=== PATIENT | female | born 1940 | race Caucasian/White ===

== ENCOUNTER 2017-03-12 05:51 | Inpatient (IN) | payer OTHER ==
[2017-03-04 13:01] VITALS: BMI 23.0
--- NOTE | 2017-03-04 13:36 | PAT Medication Instructions ---
Service Date Mar 04, 2017. Current Home Medication List Anastrozole (Arimidex), 1 MG PO QAM Atorvastatin (Lipitor), 10 MG PO QAM Cholecalciferol (Vitamin D3), 1 TAB PO QAM Fish Oil ([place]-3), 1 CAP PO QAM Ibuprofen (Advil), 200-600 MG PO Q6 PRN for Pain Medication Instructions For Your Scheduled Surgery - Hold the following medications starting tomorrow, 03/05/17: Fish Oil ([place]-3), 1 CAP PO QAM - Hold the following medications the morning of surgery: Cholecalciferol (Vitamin D3), 1 TAB PO QAM Ibuprofen (Advil), 200-600 MG PO Q6 PRN for Pain (unless otherwise indicated by surgeon) - Take the following medications the morning of surgery with a sip of water: Atorvastatin (Lipitor), 10 MG PO QAM Anastrozole (Arimidex), 1 MG PO QAM If you have any questions please call us at [phone] or [phone] or [phone]
--- NOTE | 2017-03-04 14:24 | DIAGNOSTIC IMAGING REPORT ---
CHEST 2 VIEWS ROUTINE CLINICAL HISTORY: 76 years-old Female presenting with preoperative assessment. TECHNIQUE: PA and lateral views of the chest were obtained. COMPARISON: None. FINDINGS: Surgical clips project over the left axilla and over the left lung base. Atherosclerosis of the aortic arch. Tortuosity of the descending thoracic aorta. Cardiac silhouette normal. Lungs and pleural spaces clear. Osseous structures normal. Upper abdomen normal. IMPRESSION: 1. No acute cardiopulmonary disease. Electronically signed by: Andrae Hoyos M.D. 03/04/2017 2:22 PM Dictated Date/Time: 03/04/2017 2:21 PM
[2017-03-04 14:46] LABS: PROTHROMBIN TIME (PATIENT) 10.9 SECONDS (9.0-12.0)
[2017-03-04 14:47] LABS: BASO % 0.1 %; BASO ABS # 0.01 K/uL (0-0.2); COMPLETE YES; EOS % 1.9 %; HEMATOCRIT 49.7 % (37-47); LYMPH % 21.5 %; LYMPH ABS # 1.58 K/uL (1.2-3.4); MEAN CORPUSCULAR HEMOGLOBIN 29.7 pg (25-34); MEAN PLATELET VOLUME 10.1 fL (7.4-10.4); MONO % 8.3 %; NEUT % 68.2 %; PLATELET COUNT 200 K/uL (130-400); RED BLOOD COUNT 5.52 M/uL (4.2-5.4); WHITE BLOOD COUNT 7.35 K/uL (4.8-10.8)
[2017-03-04 14:49] LABS: URINE APPEARANCE CLEAR (CLEAR); URINE BILIRUBIN NEG (NEG); URINE COLOR YELLOW; URINE NITRITE POS (NEG); URINE PH 5.5 (4.5-7.5); URINE SPECIFIC GRAVITY 1.019 (1.000-1.030); UROBILINOGEN NEG (NEG)
[2017-03-04 14:50] LABS: MANUAL MICROSCOPIC REQUIRED? NO; REVIEW REQ? NO
[2017-03-04 14:57] LABS: BUN/CREATININE RATIO 16.1 (10-20); CALCIUM 9.6 mg/dl (8.5-10.1); CREATININE 0.8 mg/dl (0.60-1.20); POTASSIUM 3.7 mmol/L (3.5-5.1)
[2017-03-05 07:01] LABS: ESTIMATED AVERAGE GLUCOSE 100 mg/dl; HA1C FLAG Normal (Normal)
--- NOTE | 2017-03-11 12:58 | HISTORY & PHYSICAL EXAMINATION ---
DATE OF ADMISSION: 03/12/2017 CHIEF COMPLAINT: Right hip pain. HISTORY OF PRESENT ILLNESS: The patient is a 76-year-old female with known osteoarthritis about her right hip. She recently had an intraarticular corticosteroid injection with minimal relief. She continues to have pain and disability with activities of daily living and now desires to proceed with right total hip arthroplasty. PAST MEDICAL HISTORY: Hypercholesterolemia, acid reflux, and breast cancer. PAST SURGICAL HISTORY: Breast lumpectomy, tubal ligation. MEDICATIONS: Lipitor daily, Arimidex 1 mg daily, vitamin D 3000 units daily, fish oil 1000 mg daily, and ibuprofen p.r.n. ALLERGIES: No known drug allergies. SOCIAL HISTORY AND REVIEW OF SYSTEMS: Noncontributory. PHYSICAL EXAMINATION: GENERAL: Well-nourished, well-developed elderly female who appears her stated age. HEENT: Normocephalic, atraumatic, extraocular movements intact, oropharynx pink and moist. NECK: Supple without adenopathy. LUNGS: Clear to auscultation bilaterally. HEART: Regular rate and rhythm. ABDOMEN: Soft, nontender, nondistended. EXTREMITIES: The upper extremities are within normal limits. The right hip demonstrates limited range of motion. There is limitation of active and passive, internal/external rotation. She has pain at end range. X-RAYS: X-rays were reviewed. She has severe osteoarthritis about the right hip with complete loss of the joint space. There are large osteophytes about the femoral head and acetabulum. ASSESSMENT: Right hip degenerative joint disease. PLAN: Risks versus benefits were discussed. Consent was obtained. The patient's primary care physician is Dr Phillip Zuñiga. We will proceed with right total hip arthroplasty upon preop workup and medical clearance. [facility] [place] DIVISIONYuliya
[~2017-03-12] VITALS: Ht 167.6 cm; Wt 65.6 kg
[2017-03-12] VITALS (9 sets, daily range): BP systolic 117–156; BP diastolic 56–105; PULSE 68–88; TEMP 36.3–36.7; O2SAT 93–98; Ht 167.6 cm; Wt 65.6 kg
[~2017-03-12 05:51] MED LIST: ANAS1TAB19 PO; ATOR10TA88 PO; IBUP-1050 PO; OMEG10007 PO; VTMD1000 PO
[2017-03-12] MEDS ORDERED: GABAPENTIN 300 MG CAP PO SCH (06:00)
[2017-03-12] MEDS ORDERED: DEXAMETHASONE 4 MG TAB PO SCH (06:00)
[2017-03-12] MEDS ORDERED: LACTATED RINGER'S 1000ML 1,000 ML IV SCH (06:00)
[2017-03-12] MEDS ORDERED: ROPIVACAINE 5MG/ML 30 ML 150 MG, BUPIVACAINE/EPINEPHR 0.5% MPF 30 ML, KETOROLAC TROMETH... INFIL SCH ×7 (06:00)
[2017-03-12] MEDS ORDERED: FAMOTIDINE 20 MG TAB PO SCH (06:00)
[2017-03-12] MEDS ORDERED: LACTATED RINGER'S 1000ML 500 ML IV ONE (06:00)
[2017-03-12] MEDS ORDERED: LACTATED RINGER'S 1000ML IV SCH (06:00)
[2017-03-12] MEDS ORDERED: TRANEXAMIC ACID INJ 1,000 MG in SODIUM CHLORIDE 0.9% 100ML 100 ML IV SCH (06:00)
[2017-03-12] MEDS ORDERED: ACETAMINOPHEN 500 MG TAB PO SCH (06:00)
[2017-03-12] MEDS ORDERED: METOCLOPRAMIDE HCL 10 MG TAB PO SCH (06:00)
[2017-03-12] MEDS ORDERED: CEFAZOLIN 1000MG/55 ML D5W 55 ML IV SCH (06:00)
[2017-03-12] MEDS ORDERED: CeleBREX 200 MG CAP PO SCH (06:00)
[2017-03-12] MEDS ORDERED: OXYCODONE HCL 10 MG TABCR (OXYCONTIN) PO SCH (06:00)
[2017-03-12] MEDS: TRANEXAMIC ACID INJ 1,000 MG in SODIUM CHLORIDE 0.9% 100ML 100 ML IV SCH ×2 (06:30→07:17)
[2017-03-12] MEDS ORDERED: BUPIVACAINE 0.5 % 5 MG/1 ML PF 10ML VIAL ONE (06:41)
--- NOTE | 2017-03-12 06:58 | History & Physical Bridge Note ---
H&P Re-Evaluation Bridge Note: I have examined the patient, reviewed the History & Physical and in the interval since the performance of the History & Physical I have noted the following changes of clinical significance: No changes noted
[2017-03-12] MEDS ORDERED: MIDAZOLAM HCL 1 MG/ML 2ML VIAL ONE (07:04)
[2017-03-12] MEDS ORDERED: EpHEDrine SULFATE INJ 50 MG/ML AMP IV PRN (07:15)
[2017-03-12] MEDS ORDERED: FENTANYL CITRATE INJ 50 MCG/1 ML 2 ML VIAL IV PRN (07:15)
[2017-03-12] MEDS ORDERED: ONDANSETRON INJ 2 MG/ML 2 ML VIAL IV PRN ×2 (07:15→09:30)
[2017-03-12] MEDS ORDERED: ATROPINE SULFATE 0.1 MG/ML 5ML SYR IV PRN (07:15)
[2017-03-12] MEDS ORDERED: ORTHO JOINT ANESTHETIC ONE (07:16)
[2017-03-12] MEDS ORDERED: POVIDONE-IODINE OP SOLN 30 ML BTL ONE (07:16)
[2017-03-12] MEDS ORDERED: BACITRACIN 50000 UNIT VIAL ONE (07:16)
[2017-03-12] MEDS ORDERED: PROPOFOL IV EMULSION 10 MG/ML 20 ML VIAL IV ONE (08:30)
--- NOTE | 2017-03-12 09:00 | [facility] Post Operative Brief Note ---
Immediate Operative Summary Operative Date Mar 12, 2017. Pre-Operative Diagnosis OA right hip Post-Operative Diagnosis same Procedure(s) Performed R supa Surgeon [employer] Manufacturing Technician Surgeon(s) Kaya Estimated Blood Loss 100cc Findings severe OA Specimens head Complication(s) None Disposition Recovery Room / PACU
[2017-03-12] MEDS ORDERED: PHENYLEPHRINE 100MCG/ML 5ML SYR ONE (09:12)
[2017-03-12] MEDS ORDERED: EpHEDrine SULFATE 50MG/5ML SYR ONE (09:12)
[2017-03-12] MEDS ORDERED: MoRPHine SULFATE 4 MG/ML 1 ML CARP\\VIAL IV PRN (09:30)
[2017-03-12] MEDS ORDERED: MAGNESIUM HYDROXIDE SUSP 30 ML UDC PO PRN (09:30)
[2017-03-12] MEDS ORDERED: ALUMINUM/MAGNESIUM/SIMETH (MAALOX MAX) 30 ML UDC PO PRN (09:30)
[2017-03-12] MEDS ORDERED: BISACODYL 10 MG SUPP PR PRN (09:30)
[2017-03-12] MEDS ORDERED: MoRPHine SULFATE 2 MG/ML CARP IV PRN (09:30)
[2017-03-12] MEDS ORDERED: TRAMADOL HCL 50 MG TAB PO PRN (09:30)
--- NOTE | 2017-03-12 09:32 | OPERATIVE REPORT ---
DATE OF OPERATION: 03/12/2017 PREOPERATIVE DIAGNOSIS: Osteoarthritis, right hip. POSTOPERATIVE DIAGNOSIS: Osteoarthritis, right hip. PROCEDURE: Right connective total hip arthroplasty. SURGEON: Dr. Sorensen. SPINNING BATH PERSON: HEMANT Lou ANESTHESIA: Spinal. COMPLICATIONS: None. IMPLANTS USED: Acetabular reamer used 54, acetabular shell 54, femoral stem 3, femoral head +2.5 x 36 ceramic. DESCRIPTION OF PROCEDURE: Following induction of adequate spinal anesthesia, the patient was placed in left lateral decubitus position and right Jaime-Langenbeck incision was made. Subcutaneous tissue was sharply dissected. Electrocautery used for hemostasis. The fascia was incised throughout the length of the wound and a doe scissor placed beneath the short external rotators. The pyriformis was tagged with #1 Vicryl. The short external rotators were divided from the posterior aspect of the femur using electrocautery. These were swept posteriorly. A T-capsulotomy incision was made and the hip was dislocated using a combination of flexion, adduction, and internal rotation. Exposure of the femoral neck with old-style Hohmann and a blunt Hohmann was carried out and a femoral rasp was utilized as a guide for making the appropriate level femoral neck cut. This bone fragment was removed and reserved on the back table. Next, attention was turned to the acetabulum where bone hook was used to retract the femur while the offset retractors were placed anterior and posteriorly. A double-angled Hohmann was placed in superior and anterior position exposing the acetabulum nicely. Acetabular labrum as well as posterior capsule elements were removed using a long knife and a long pickup. Fovea centralis was cleared of all soft tissue. Sequential reamings were carried up to a 54 and decision was made to proceed with impaction of a 54 trabecular metal cup. This was impacted and held using a single 35 mm bone screw. The acetabular liner was placed with 15 of elevated posterior wall in the superior and posterior position. Next, attention was turned to the femoral portion of the case where a Bovie and pickup was used to further clear short external rotators from their insertion on the femur. Box osteotome was used to gain access to the femoral canal and the T-handled rasp and a rattail rasp were used to further open and lateral the canal. Sequentially raspings were carried up to a 3, which gave good fit and fill of the proximal femur. A trial reduction was carried out and ____ offset femoral neck component was chosen as the size to be used. A +2.5 x 36 mm femoral head was impacted into position, +0 head was utilized. The trial reduction was stable in all degrees of rotation with no [id number] impingement. The hip was dislocated. The trial components were removed and the final femoral stem, neck, and femoral head combination were assembled on the back table and impacted into position. Hip was relocated. Range of motion checked once again successful and the wound was irrigated. The pyriformis repaired to the greater trochanter using #1 Vicryl [id number] suture. A Hemovac drain was placed and the fascia was closed using #1 Vicryl, subcutaneous tissue was closed using 0 Dexon, and skin was closed with yen. Sterile dressing of Adaptic, 4 x 4's, ABDs, and foam tape was applied. The patient tolerated the procedure well. Due to the complex nature of the procedure, the entire surgery was performed with the operational assistance of HEMANT Lou. The legal executive assistant, under direct supervision, was involved in the actual performance of all aspects of the surgical procedure including hemostasis, tissue retraction and incision, instrument management, patient positioning, and wound closure. DISPOSITION: Recovery room stable. I attest to the content of the Intraoperative Record and any orders documented therein. Any exception s are noted below.
--- NOTE | 2017-03-12 09:53 | DIAGNOSTIC IMAGING REPORT ---
RIGHT PELVIS/UNILATERAL HIP 1 VIEW CLINICAL HISTORY: Postoperative evaluation. COMPARISON: None FINDINGS: Alignment of the total right hip arthroplasty is anatomic. There is no periprosthetic fracture or unexpected radiopaque foreign body. Surgical drains are in place. There is an acetabular screw. IMPRESSION: Expected findings following total right hip arthroplasty. Electronically signed by: Tomasz Woo M.D. 03/12/2017 9:52 AM Dictated Date/Time: 03/12/2017 9:51 AM
[2017-03-12] MEDS: D5W AND 1/2NSS + 20MEQ KCL 1,000 ML IV SCH ×2 (10:55→20:41)
--- NOTE | 2017-03-12 11:23 | Anesthesiology Progress Note ---
Anesthesia Post Op Note Date & Time Mar 12, 2017 at 11:23 Vital Signs Pain Intensity: 0.0 Vital Signs Past 12 Hours Date Time Temp Pulse Resp B/P (MAP) Pulse Ox O2 Delivery O2 Flow Rate FiO2 03/12/17 10:40 36.4 86 17 145/82 (103) 94 Nasal Cannula 2.0 03/12/17 10:10 98 Nasal Cannula 2.0 03/12/17 10:10 36.5 74 18 149/77 (101) 98 Nasal Cannula 2.0 03/12/17 10:10 Nasal Cannula 03/12/17 09:50 36.5 82 16 124/77 97 Nasal Cannula 2 03/12/17 09:40 75 16 129/64 97 Nasal Cannula 2 03/12/17 09:30 36.1 81 16 128/77 100 Nasal Cannula 2 03/12/17 09:24 36.1 74 16 132/75 100 Oxymask 10 03/12/17 06:11 36.6 88 18 153/105 96 Room Air Notes Mental Status: alert / awake / arousable, participated in evaluation Pt Amnestic to Procedure: Yes Nausea / Vomiting: adequately controlled Pain: adequately controlled Airway Patency, RR, SpO2: stable & adequate BP & HR: stable & adequate Hydration State: stable & adequate Neuraxial Anesthesia: was administered, sensory block is resolving Anesthetic Complications: no major complications apparent
[2017-03-12] MEDS: FERROUS GLUCONATE 324 MG TAB PO SCH ×2 (12:42→17:41)
[2017-03-12] MEDS: CEFAZOLIN IV 1,000 MG in DEXTROSE 5% 50ML 50 ML IV SCH (16:30)
[2017-03-12] MEDS: ACETAMINOPHEN 500 MG TAB PO SCH (16:30)
[2017-03-12] MEDS: ASPIRIN 81 MG ECTAB PO SCH (20:42)
[2017-03-12] MEDS: DOCUSATE SODIUM 100 MG CAP PO SCH (20:42)
[2017-03-12] MEDS: OXYCODONE HCL IR 5 MG TAB (IMMEDIATE RELEASE) PO PRN (22:15)
[2017-03-13] MEDS: ACETAMINOPHEN 500 MG TAB PO SCH ×4 (00:05→23:27)
[2017-03-13] MEDS: CEFAZOLIN IV 1,000 MG in DEXTROSE 5% 50ML 50 ML IV SCH (00:05)
[2017-03-13 04:04] VITALS: BP 114/63; PULSE 70; TEMP 36.7; O2SAT 93
[2017-03-13] MEDS: D5W AND 1/2NSS + 20MEQ KCL 1,000 ML IV SCH (05:17)
[2017-03-13 05:53] LABS: BASO % 0.1 %; BASO ABS # 0.01 K/uL (0-0.2); COMPLETE YES; EOS % 0.1 %; HEMATOCRIT 39.4 % (37-47); IG% 0.3 %; LYMPH % 7.9 %; LYMPH ABS # 1.16 K/uL (1.2-3.4); MEAN CELL VOLUME 89.7 fL (80-100); MEAN CORPUSCULAR HEMOGLOBIN 30.1 pg (25-34); MEAN CORPUSCULAR HGB CONC 33.5 g/dl (32-36); MEAN PLATELET VOLUME 9.8 fL (7.4-10.4); MONO % 8.2 %; NEUT % 83.4 %; PLATELET COUNT 248 K/uL (130-400); RED BLOOD COUNT 4.39 M/uL (4.2-5.4); WHITE BLOOD COUNT 14.75 K/uL (4.8-10.8)
[2017-03-13 06:28] LABS: CALCIUM 8.9 mg/dl (8.5-10.1); CREATININE 0.94 mg/dl (0.60-1.20)
[2017-03-13 06:58] VITALS: BP 118/65; PULSE 57; TEMP 36.5; O2SAT 93
--- NOTE | 2017-03-13 07:26 | Orthopedic Progress Note ---
Orthopedic Progress Note Date of Service Mar 13, 2017. Subjective Post OP Day: 1 Reports: feeling well Objective N/V intact, dressing C/D/I (Hemovac in place), toes mobile Date Time Temp Pulse Resp B/P (MAP) Pulse Ox O2 Delivery O2 Flow Rate FiO2 03/13/17 06:58 36.5 57 16 118/65 (82) 93 Room Air 03/13/17 04:04 36.7 70 16 114/63 (80) 93 Room Air 03/13/17 00:05 Room Air 03/12/17 22:58 36.6 68 16 117/56 (76) 93 Room Air 03/12/17 20:10 36.7 68 18 137/77 (97) 94 Room Air 03/12/17 15:31 Room Air 03/12/17 15:09 36.5 79 18 134/77 (96) 95 Room Air 03/12/17 13:12 36.4 80 19 137/81 (99) 97 Room Air 2.0 03/12/17 12:08 36.4 81 19 151/86 (107) 98 Nasal Cannula 2.0 03/12/17 11:10 36.3 80 16 156/89 (111) 94 Nasal Cannula 2.0 03/12/17 10:40 36.4 86 17 145/82 (103) 94 Nasal Cannula 2.0 03/12/17 10:10 98 Nasal Cannula 2.0 03/12/17 10:10 36.5 74 18 149/77 (101) 98 Nasal Cannula 2.0 03/12/17 10:10 Nasal Cannula 03/12/17 09:50 36.5 82 16 124/77 97 Nasal Cannula 2 03/12/17 09:40 75 16 129/64 97 Nasal Cannula 2 03/12/17 09:30 36.1 81 16 128/77 100 Nasal Cannula 2 03/12/17 09:24 36.1 74 16 132/75 100 Oxymask 10 Laboratory Results 24 Hours: Test 03/13/17 05:12 White Blood Count 14.75 K/uL Red Blood Count 4.39 M/uL Hemoglobin 13.2 g/dL Hematocrit 39.4 % Mean Corpuscular Volume 89.7 fL Mean Corpuscular Hemoglobin 30.1 pg Mean Corpuscular Hemoglobin Concent 33.5 g/dl Platelet Count 248 K/uL Mean Platelet Volume 9.8 fL Neutrophils (%) (Auto) 83.4 % Lymphocytes (%) (Auto) 7.9 % Monocytes (%) (Auto) 8.2 % Eosinophils (%) (Auto) 0.1 % Basophils (%) (Auto) 0.1 % Neutrophils # (Auto) 12.31 K/uL Lymphocytes # (Auto) 1.16 K/uL Monocytes # (Auto) 1.21 K/uL Eosinophils # (Auto) 0.02 K/uL Basophils # (Auto) 0.01 K/uL Assessment & Plan Assessment: 76 yo female stable POD #1 s/p right MICKY Plan: 1. Med management 2. DVT prophylaxis- ASA, SCDs 3. PT/OT 4. D/C planning- home(daughter's) w/ HH
--- NOTE | 2017-03-13 07:28 | Discharge Instructions ---
Discharge Instructions Date of Service Mar 13, 2017. Admission Reason for Admission: Right Hip Osteoarthritis Discharge Discharge Diagnosis / Problem: Right hip arthritis Discharge Goals Goal(s): Decrease discomfort, Improve function Activity Recommendations Activity Limitations: as noted below Weightbearing Status: Right weightbearing (as tolerated) . Instructions / Follow-Up Instructions / Follow-Up ACTIVITY RECOMMENDATIONS: SELF CARE INSTRUCTIONS AFTER TOTAL HIP REPLACEMENT Until the incision and soft tissues around your hip have healed, there is a possibility that the hip prosthesis could dislocate. A. Observe the following precautions to prevent dislocation: 1. Don't bend your hip greater than 90 degrees. 2. Avoid crossing your legs or ankles while standing or lying. 3. Sit with your feet placed 6 inches apart. 4. When sitting, keep your knees below your hips. Sit on a firm surface, avoid deep, soft chairs and couches. Use an elevated toilet seat in the bathroom. 5. Don't bend over at the waist. Use a long handled shoehorn and a sock aid to help you put on your shoes and socks. A nuclear physics teacher can help you picking supervisor objects that are too high or too low to reach. 6. Keep car riding to a minimum for at least one month after surgery. B. Your balance may be shaky for a while. Use crutches or a walker until directed by your doctor. C. Use hand rails when walking on stairs. D. Wear low heeled shoes with non-slip soles. E. Be sure that your floors are free of things that could trip you - throw rugs , electrical cords, small objects. Avoid wet and waxed floors, especially with crutches and canes. F. Try to walk several times a day with rest periods between. G. Continue with all the exercises taught to you in the hospital. Again, make walking a part of your daily routine. SPECIAL CARE INSTRUCTIONS: VERY IMPORTANT TO READ AND REVIEW A. You may still be at risk for phlebitis and blood clots. 1. Wear surgical stockings (CHUCKY hose) for 2 weeks after surgery to improve circulation and reduce swelling. 2. Take Aspirin 81mg twice daily for 4 weeks or as directed by your doctor. This is your blood thinner. 3. High risk patients may be prescribed a stronger blood thinner if necessary. 4. If you are on Coumadin normally, your family doctor/cardiac exercise specialist should monitor your blood work. Expect a phone call the day of or the day after bloodwork is drawn to adjust your dosage. B. You must take antibiotics before having dental work, bladder, bowel and other surgery. Your doctor will provide you with a permanent card to carry describing precautions. C. Call [facility] if you have a fever, redness or swelling around the incision, cloudy drainage from incision, or sudden increase in pain in your hip, not relieved by your regular pain medication. D. Please call the office at if you have any concerns or questions about your operation or recovery. * YOU MAY SHOWER, NO TUB BATHS UNTIL CLEARED BY YOUR DOCTOR. * WEAR CHUCKY HOSE 20 HOURS PER DAY FOR 2 WEEKS. * YOU SHOULD USE A WALKER OR CRUTCHES FOR 2-4 WEEKS. THIS WILL HELP PREVENT STRAIN ON YOUR HIP MUSCLE AND ALLOW IT TO HEAL PROPERLY. YOU MAY WEAN TO A CANE TOLERATED. * MOST PATIENTS WILL HAVE HOME NURSING FOR THERAPY. IF YOU DECIDE TO DO OUTPATIENT PHYSICAL THERAPY, PLEASE SCHEDULE THIS 3 TIMES PER WEEK. Incision care- you have a Zipline closure. Just keep this area clean and dry. This will be removed at your 2 week post op visit. You may shower and pat dry. Call if redness or drainage from the incision is noted. FOLLOW UP VISIT: If appointment is not already scheduled: Please call [facility] to make a follow-up appointment for 2 weeks after your surgery at . Current Hospital Diet Patient's current hospital diet: Regular Diet Discharge Diet Recommended Diet: Regular Diet Procedures Procedures Performed: Right Total Hip Arthroplasty--Uncemented Pending Studies Studies pending at discharge: no Laboratory Results Hemoglobin A1c Test 03/04/17 13:50 Range/Units Estimated Average Glucose 100 mg/dl Hemoglobin A1c 5.1 4.5-5.6 % Medical Emergencies . Who to Call and When: Medical Emergencies: If at any time you feel your situation is an emergency, please call 911 immediately. . Non-Emergent Contact Non-Emergency issues call your: Surgeon Call Non-Emergent contact if: temperature is above 101.5, your pain is not controlled, wound has increased drainage, wound has increased redness . "Provider Documentation" section prepared by Yoandy L. Kibe, PA-C. . VTE Core Measure Inpt VTE Proph given/why not?: Other Anticoagulation (ASA), T.E.D. Stockings, SCD's [place] Drug Monitoring Program Search Results: patient reviewed within database, no issues identified
[2017-03-13] MEDS: ATORVASTATIN 10 MG TAB PO SCH (08:37)
[2017-03-13] MEDS: CHOLECALCIFEROL 1000 INTER.UNIT TAB PO SCH (08:37)
[2017-03-13] MEDS: ASPIRIN 81 MG ECTAB PO SCH ×2 (08:37→20:19)
[2017-03-13] MEDS: MULTIVITAMIN TAB PO SCH (08:37)
[2017-03-13] MEDS: PANTOprazole SOD 40 MG TAB PO SCH (08:37)
[2017-03-13] MEDS: FERROUS GLUCONATE 324 MG TAB PO SCH ×3 (08:37→17:38)
[2017-03-13] MEDS: DOCUSATE SODIUM 100 MG CAP PO SCH ×2 (08:37→20:19)
--- NOTE | 2017-03-13 08:40 | Anesthesiology Progress Note ---
Anesthesia Post Op Note Date & Time Mar 13, 2017 at 08:40 Vital Signs Vital Signs Past 12 Hours Date Time Temp Pulse Resp B/P (MAP) Pulse Ox O2 Delivery O2 Flow Rate FiO2 03/13/17 07:48 Room Air 03/13/17 06:58 36.5 57 16 118/65 (82) 93 Room Air 03/13/17 04:04 36.7 70 16 114/63 (80) 93 Room Air 03/13/17 00:05 Room Air 03/12/17 22:58 36.6 68 16 117/56 (76) 93 Room Air Notes Mental Status: alert / awake / arousable, participated in evaluation Pt Amnestic to Procedure: Yes Nausea / Vomiting: adequately controlled Pain: adequately controlled Airway Patency, RR, SpO2: stable & adequate BP & HR: stable & adequate Hydration State: stable & adequate Neuraxial Anesthesia: sensory block resolved Anesthetic Complications: no major complications apparent
[2017-03-13] MEDS: OXYCODONE HCL IR 5 MG TAB (IMMEDIATE RELEASE) PO PRN ×2 (08:41→20:19)
[2017-03-13] MEDS: ANASTROZOLE 1 MG TAB PO SCH (08:41)
[2017-03-13 11:11] VITALS: BP 129/71; PULSE 60; TEMP 36.7; O2SAT 95
[2017-03-13 15:04] VITALS: BP 145/76; PULSE 62; TEMP 36.8; O2SAT 93
[2017-03-13 22:50] VITALS: BP 153/73; PULSE 79; TEMP 36.7; O2SAT 95
[2017-03-14 06:17] VITALS: BP 167/88; PULSE 74; TEMP 36.4; O2SAT 95
--- NOTE | 2017-03-14 07:21 | Orthopedic Progress Note ---
Orthopedic Progress Note Date of Service Mar 14, 2017. Subjective Post OP Day: 2 Reports: feeling well, Denies: chest pain, SOB, nausea / vomiting, light headedness, calf pain Objective calves soft nontender, N/V intact, hip located, incision C/D/I (zipline), A&O x3 , toes mobile Date Time Temp Pulse Resp B/P (MAP) Pulse Ox O2 Delivery O2 Flow Rate FiO2 03/14/17 06:17 36.4 74 16 167/88 (114) 95 Room Air 03/13/17 22:50 36.7 79 16 153/73 (99) 95 Room Air 03/13/17 20:41 Room Air 03/13/17 15:04 36.8 62 16 145/76 (99) 93 Room Air 03/13/17 11:11 36.7 60 18 129/71 (90) 95 Room Air 03/13/17 07:48 Room Air Assessment & Plan Assessment: 76 yo female stable POD #2 s/p right MICKY Plan: 1. Med management 2. DVT prophylaxis- ASA, SCDs 3. PT/OT 4. D/C planning- home(daughter's) w/ HH- DC HOME TODAY AFTER PT
[2017-03-14] MEDS ORDERED: ONDA8TAB6 PO (07:23)
[2017-03-14] MEDS ORDERED: RXC5 PO (07:23)
[2017-03-14] MEDS ORDERED: ASPEC81 PO (07:23)
[2017-03-14] MEDS ORDERED: ACET-24 PO (07:23)
[2017-03-14] MEDS: PANTOprazole SOD 40 MG TAB PO SCH (07:50)
[2017-03-14] MEDS: ATORVASTATIN 10 MG TAB PO SCH (07:50)
[2017-03-14] MEDS: MULTIVITAMIN TAB PO SCH (07:50)
[2017-03-14] MEDS: CHOLECALCIFEROL 1000 INTER.UNIT TAB PO SCH (07:50)
[2017-03-14] MEDS: FERROUS GLUCONATE 324 MG TAB PO SCH (07:50)
[2017-03-14] MEDS: DOCUSATE SODIUM 100 MG CAP PO SCH (07:50)
[2017-03-14] MEDS: ASPIRIN 81 MG ECTAB PO SCH (07:50)
[2017-03-14] MEDS: ACETAMINOPHEN 500 MG TAB PO SCH (07:51)
[2017-03-14] MEDS: OXYCODONE HCL IR 5 MG TAB (IMMEDIATE RELEASE) PO PRN (07:54)
[2017-03-14] MEDS: ANASTROZOLE 1 MG TAB PO SCH (07:54)
[2017-03-14 09:59] VITALS: BP 138/85; PULSE 82; O2SAT 96
[2017-03-14 11:53] VITALS: BP 138/85; PULSE 82; TEMP 36.4; O2SAT 96
--- NOTE | 2017-03-18 15:22 | DISCHARGE SUMMARY ---
DISCHARGE DIAGNOSIS: Degenerative joint disease, right hip. SECONDARY DIAGNOSES: Hypercholesterolemia, GERD, history of breast carcinoma. CONSULTS: None. COMPLICATIONS: None. PROCEDURES: Right total hip arthroplasty performed by Dr. Sorensen on 03/12/2017. BRIEF HISTORY: As dictated in history and physical. HOSPITAL SUMMARY: The patient was admitted on the above-noted date and had the above-noted surgery performed which she tolerated well. On the first postoperative day, she was feeling well. Neurovascularly intact. Dressings clean, dry and intact. Toes were mobile. Vital signs were stable. She was afebrile. Hemoglobin was 13.2 and she was started on physical therapy protocol and continued on DVT prophylaxis and pain management. By her second postoperative day, she was feeling well and had no complaints. Incision was benign. Toes were mobile. Calves were soft and nontender and she was remaining stable. She was progressing with her physical therapy and it was felt she could be discharged to home. For further review, please see chart. LAB AND X-RAY DATA: As per chart. DISCHARGE INSTRUCTIONS: The patient was discharged to home in satisfactory condition on 03/14/2017. DIET: Regular. ACTIVITY: Weightbearing as tolerated right lower extremity. Follow MICKY instruction sheets and special care instructions as noted. DISCHARGE MEDICATIONS: Acetaminophen 1000 mg p.o. q. 8 hours, aspirin 81 mg p.o. b.i.d., Zofran 8 mg p.o. q. 8 hours p.r.n. nausea, oxycodone 5-10 mg p.o. q. 4 hours p.r.n., resume home medications as listed and stop taking ibuprofen.
== END 2017-03-14 13:10 | disposition home health service (06) | DRG 470 ==
LOC: C.ACU 05:51 → C.3E 07:00 → ENRESERV 09:47
PROC: 0SR903A Replacement of Right Hip Joint with Ceramic Synthetic Substitute, Uncemented, Open Approach (ICD-10-PCS; principal; 2017-03-12 08:00)
DX: M16.11 Unilateral primary osteoarthritis, right hip (principal); E78.00 Pure hypercholesterolemia, unspecified; K21.9 Gastro-esophageal reflux disease without esophagitis; Z79.899 Other long term (current) drug therapy; Z85.3 Personal history of malignant neoplasm of breast